=== PATIENT | male | born 1980 | race Caucasian/White ===

== ENCOUNTER 2025-04-19 07:54 | Emergency (ER) | payer MEDICAID ==
[~2025-04-19] VITALS: Ht 190.5 cm; Wt 100.0 kg
[2025-04-19 07:56] VITALS: BP 149/94; PULSE 81; RESP 16; TEMP 98.3; O2SAT 98
[2025-04-19] MEDS ORDERED: AMOX1TAB16 MT (08:18)
== END 2025-04-19 08:28 | disposition home or self-care (01) ==
LOC: ER 07:54
DX: L02.31 Cutaneous abscess of buttock (principal); E11.9 Type 2 diabetes mellitus without complications
CPT/HCPCS: 99283